=== PATIENT | female | born 1995 | race Caucasian/White ===

== ENCOUNTER 2024-01-30 11:09 | Emergency (ER) | payer OTHER, SELFPAY ==
[2024-01-30 11:15] VITALS: BP 135/84; PULSE 79; TEMP 37.3; O2SAT 99; BMI 24.5
--- NOTE | 2024-01-30 11:17 | XR_ITS ---
The [address] [address] Patient Name: BECKY GRUBBS MRN: [id number] date: 1995 Sex: F Assigned Patient Location: ER Current Patient Location: ED.MAIN Accession/Order Number: [id number] Exam Date: 01/30/2024 11:32 Report Date: 01/30/2024 11:54 At the request of: LINDA BROOKS Procedure: XR foot LT min 3V PROCEDURE: XR foot LT min 3V HISTORY: Pain, heavy item fell onto foot, medial COMPARISON: None. FINDINGS: BONES:Thin curvilinear lucency extending through the navicular bone on the lateral view which may represent fracture. SOFT TISSUES:No visible soft tissue swelling. EFFUSION:None visible. OTHER: Negative. XR/XR foot LT min 3V IMPRESSION: 1. Nondisplaced fracture of the navicular bone versus summation artifact of the trabecula. Consider CT imaging of the foot if pain correlates to this area. Electronically authenticated by: NAHOMI SCHULTZ Date: 01/30/2024 11:54
--- NOTE | 2024-01-30 11:18 | ED.LOWEXI1 ---
HPI HPI - Extremity Injury (Lower) General Chief Complaint: Extremity Injury, Lower Stated Complaint: LOWER EXTREMITY INJURY Time Seen by Provider: 01/30/24 11:13 History of Present Illness HPI Narrative: 28-year-old female presents for left foot pain. She was at work just before coming into the emergency department and a heavy metal bar fell onto the medial aspect of her foot. No other injury was sustained. She is not complaining of pain in the ankle. Ice was applied and she came here to be looked at. Related Data Previous Rx's ?Medication ?Instructions ?Recorded acetaminophen 300 mg-codeine 30 mg 1 tab PO Q6H PRN pain 5 days #20 01/30/24 tablet tabs Allergies Allergy/AdvReac Type Severity Reaction Status Date / Time Penicillins Allergy Unknown Verified 01/30/24 11:15 Opioid HPI Opioid Management Most Recent Pain and Opioid Data: Last Pain Scale 6 01/30/24 11:18 01/30/24 Review of Systems ROS Narrative A ten point review of systems is negative except as noted above. PFSH PFSH Social History Little interest or pleasure in doing things: not at all Feeling down, depressed, or hopeless: not at all Exam Narrative Exam Narrative: Nurses note and vital signs reviewed and patient is not hypoxic. General: The patient appears in no apparent distress. Skin: Warm, dry, no pallor noted. There is no rash noted. Head: Normocephalic, atraumatic Eye: Normal conjunctiva, no drainage Ears, Nose, Mouth, and Throat: oral mucosa is moist. Nares patent. Cardiovascular: Regular Rate and Rhythm Respiratory: Patient is in no distress, no accessory muscle use, lungs are clear to auscultation, no wheezing, rales or rhonchi Back: non-tender GI: Soft and nontender Musculoskeletal: The left foot is inspected. There is an area of erythema but no break in the skin on the medial aspect of her foot. Ankle nontender. Neurological: A&O, normal speech Psychiatric: Cooperative MDM - Extremity Injury (Lower) MDM Narrative Medical decision making narrative: Talar fracture is identified. Case discussed with Dr. Garner and follow-up is arranged. Short leg splint applied by me, she is neurovascular intact and she is also placed on crutches. Treatment diagnosis and follow-up were discussed with the patient. Differential Diagnosis Differential diagnosis: Likely other (Foot contusion, foot fracture) Imaging Data CT foot: Radiologist's impression: ITS Impressions Foot X-Ray 01/30/24 11:17 IMPRESSION: 1. Nondisplaced fracture of the navicular bone versus summation artifact of the trabecula. Consider CT imaging of the foot if pain correlates to this area. Electronically authenticated by: NAHOMI SCHULTZ Date: 01/30/2024 11:[address] 01/30/24 12:02 IMPRESSION: 1. Acute small, minimally displaced cortical fracture fragment from distal plantar margin of the talus and questionable acute nondisplaced cortical fracture fragment along the distal dorsal margin of the talus. 2. Remote versus acute tiny corner fracture from the anterior superior margin of the calcaneus. Sequela of remote injury is favored. Electronically authenticated by: NAHOMI SCHULTZ Date: 01/30/2024 12:45 Discharge Plan Discharge Chief Complaint: Extremity Injury, Lower Clinical Impression: Talar fracture Patient Disposition: Home, Self-Care Time of Disposition Decision: 13:21 Condition: Good Mode of Transportation: Private Vehicle Prescriptions / Home Meds: New acetaminophen-codeine 300-30 mg tablet 1 tab PO Q6H PRN (Reason: pain) 5 Days Qty: 20 0RF Print Language: Cook Islander Instructions: Foot Fracture in Adults (ED) Additional Instructions: Nonweightbearing Referrals: Víctor Cantrell MD [Primary Care Provider] - 1 week Keyur Garner DPM [Physician] - 02/03/24
--- NOTE | 2024-01-30 12:02 | CT_ITS ---
The [address] [address] Patient Name: BECKY GRUBBS MRN: [id number] date: 1995 Sex: F Assigned Patient Location: ER Current Patient Location: ER Accession/Order Number: [id number] Exam Date: 01/30/2024 12:10 Report Date: 01/30/2024 12:45 At the request of: LINDA BROOKS Procedure: CT foot LT wo con EXAMINATION: CT foot LT wo con HISTORY: Possible navicular fracture COMPARISON: No relevant comparison available. TECHNIQUE: Multi-planar CT images were created without and/or with IV contrast according to examination type. Dose reduction techniques were achieved by using automated exposure control and/or adjustment of mA and/or kV according to patient size and/or use of iterative reconstruction technique. FINDINGS: BONES: Small avulsed cortical fracture fragment from the anterior plantar medial margin of the navicular bone with 2 mm displacement. Questionable nondisplaced small fracture fragments along anterior dorsal medial margin of the talus. Tiny separate ossification at the anterior superior margin of the calcaneus adjacent the tail of navicular joint which appears have corticated margins and may represent an old fracture fragment. SOFT TISSUES: Mild edema/swelling of the dorsal medial soft tissues. EFFUSION: None visible. OTHER: Negative. CT/CT foot LT wo con IMPRESSION: 1. Acute small, minimally displaced cortical fracture fragment from distal plantar margin of the talus and questionable acute nondisplaced cortical fracture fragment along the distal dorsal margin of the talus. 2. Remote versus acute tiny corner fracture from the anterior superior margin of the calcaneus. Sequela of remote injury is favored. Electronically authenticated by: NAHOMI SCHULTZ Date: 01/30/2024 12:45
== END 2024-01-30 13:57 | disposition home or self-care (01) ==
PROVIDERS: Emergency Provider Emergency Medicine; PCP Family Medicine
DX: S92.102A Unspecified fracture of left talus, initial encounter for closed fracture (principal); W20.8XXA Other cause of strike by thrown, projected or falling object, initial encounter
CPT/HCPCS: 73630; 73700; 99284

== ENCOUNTER 2024-02-25 10:18 | Outpatient (OUT) | payer OTHER, SELFPAY ==
--- NOTE | 2024-02-25 | XR_ITS ---
The [address] [address] Patient Name: BECKY GRUBBS MRN: [id number] date: 1995 Sex: F Assigned Patient Location: [facility] Current Patient Location: Accession/Order Number: [id number] Exam Date: 02/25/2024 10:18 Report Date: 02/26/2024 05:54 At the request of: BRAULIO BETTS Procedure: XR foot LT min 3V PROCEDURE: XR foot LT min 3V HISTORY: LEFT FOOT PAIN COMPARISON: XR foot left 01/30/2024, CT foot left 01/30/2024 FINDINGS: BONES:No visible fracture, acute abnormality, or significant arthropathy. SOFT TISSUES:No visible soft tissue swelling. EFFUSION:None visible. OTHER: Negative. XR/XR foot LT min 3V IMPRESSION: 1. No visible fracture on today's radiographs. 2. Prior CT study showed nondisplaced talus fracture. Electronically authenticated by: NAHOMI SCHULTZ Date: 02/26/2024 05:54
== END 2024-02-25 10:19 | disposition home or self-care (01) ==
LOC: RAD 10:18
PROVIDERS: PCP Family Medicine; Visit Provider Podiatrist Foot & Ankle Surgery
DX: S92.102A Unspecified fracture of left talus, initial encounter for closed fracture (principal); M79.672 Pain in left foot
CPT/HCPCS: 73630